=== PATIENT | female | born 1975 | race Caucasian/White ===

== ENCOUNTER 2016-08-08 12:35 | Emergency (ER) | payer MEDICAID, OTHER ==
[2016-08-08] MEDS ORDERED: ONDANSETRON 4 MG/2ML 2 ML VIAL ONE (13:50)
[2016-08-08] MEDS ORDERED: MAALOX/LIDO2%VISC/SIMETHICONE 40 ML BOT ONE (13:50)
[2016-08-08] MEDS ORDERED: LACTATED RINGERS 1,000 ML ONE (13:50)
[2016-08-08 14:20] LABS: ABSOLUTE NEUTROPHIL COUNT 7.2 K/mm3 (1.8-7.7); BASO % 0.3 % (0.2-1.0); EOS % 0.5 % (0.9-2.9); HEMATOCRIT 46.2 % (37.0-47.0); HEMOGLOBIN 15.2 gm/l (12.0-16.0); IMM NEUT% 0.3 % (0-1); LYMPH # 1.2 (1.0-4.8); MEAN CELL VOLUME 94.5 fl (81.0-99.0); MEAN CORPUSCULAR HEMOGLOBIN 31.1 pg (27.0-31.0); MEAN CORPUSCULAR HGB CONC 32.9 g/dl (33.0-37.0); MONO # 0.2 (0.0-0.8); MONO % 2.6 % (4-12); NEUT % 82.3 % (43-75); PLATELET COUNT 282 K/mm3 (130-400); RED CELL DISTRIBUTION WIDTH 12.9 % (11.5-14.5)
[2016-08-08] MEDS ORDERED: OXYCODONE HCL 5 MG TABLET ONE (14:49)
[2016-08-08 15:12] LABS: ALB/GLOB RATIO 1.3 (>1.0); CALCIUM 10.1 mg/dL (8.6-10.3)
[2016-08-08 15:16] LABS: PH,URINE 6.5 (5.0-8.0); SPECIFIC GRAVITY 1.015 (1.001-1.030); URINE BILIRUBIN NEGATIVE (NEGATIVE); URINE BLOOD TRACE (NEGATIVE); URINE GLUCOSE (UA) NEGATIVE (NEGATIVE); URINE LEUKOCYTE ESTERASE NEGATIVE (NEGATIVE); URINE NITRITE NEGATIVE (NEGATIVE); URINE PROTEIN NEGATIVE (NEGATIVE); URINE UROBILINOGEN NORMAL (0-1 mg/dl)
[2016-08-08 15:21] LABS: URINE APPEARANCE CLEAR; URINE COLOR LIGHT YELLOW
[2016-08-08 15:22] LABS: HCG,QUALITATIVE URINE NEGATIVE
[2016-08-08 15:31] LABS: URINE AMORPHOUS SEDIMENT FEW; URINE BACTERIA RARE; URINE RBC 0-2 /hpf
[2016-08-08] MEDS ORDERED: LORAZEPAM 1 MG TABLET ONE (15:57)
== END 2016-08-08 16:10 | disposition home or self-care (01) ==
LOC: ED 12:35
DX: R10.84 Generalized abdominal pain (principal); R11.2 Nausea with vomiting, unspecified; K58.9 Irritable bowel syndrome, unspecified
CPT/HCPCS: 83690; 81025; 85025; 80053; 81001; 99284 ×2; 96374; 96361; A9270 ×3; J2405; J7120